=== PATIENT | female | born 1990 | race Caucasian/White ===

== ENCOUNTER 2019-04-21 14:07 | Emergency (ER) | payer MEDICAID, OTHER ==
[2019-04-21] MEDS ORDERED: Albuterol HFA INHALER* 8 gm MDI INH ONE (14:13)
[2019-04-21] MEDS ORDERED: LORazepam TAB(*) 1 MG PO ONE (14:13)
[2019-04-21 15:44] VITALS: BP 100/67
--- NOTE | 2019-04-22 06:13 | ED ---
Respiratory - HPI Summary HPI Summary: Pt is a 28yo F with a hx of asthma attacks and panic attacks presenting to the ED for SOB and hyperventilation. 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 She was able called and ambulance transported her here to the ED for further evaluation. She was given a breathing treatment in route. She states this with little effect. She believes this is more to the an anxiety attack. She states she has several asthma attacks per day and uses her albuterol inhaler with relief, however does not have her albuterol inhaler at this time. She denies any cough or congestion. Denies any fevers, sweats, chills. She recently moved to the area and currently does not have her BuSpar and Celexa with her. She states otherwise she is healthy and denies any pain. - History of Current Complaint Chief Complaint: EDShortnessOfBreath Stated Complaint: ASTHMA ATTACK PER EMS Time Seen by Provider: 04/21/19 14:09 Hx Obtained From: Patient Onset/Duration: Sudden Onset Timing: Constant Initial Severity: Severe Current Severity: Moderate Pain Intensity: 0 Character: Dyspnea at Rest Sputum Amount: None Aggravating Factor(s): Nothing Alleviating Factor(s): Nothing Associated Signs and Symptoms: Negative - Allergy/Home Medications Allergies/Adverse Reactions: Allergies Allergy/AdvReac Type Severity Reaction Status Date / Time Penicillins Allergy Difficulty Verified 04/21/19 14:15 Breathing PMH/Surg Hx/FS Hx/Imm Hx Previously Healthy: Yes - Immunization History Hx Pertussis Vaccination: No Immunizations Up to Date: Yes Infectious Disease History: Yes Infectious Disease History: Denies: Traveled Outside the [place] in Last 30 Days - Social History Occupation: Unemployed Lives: Alone Alcohol Use: Occasionally Hx Substance Use: Yes Substance Use Type: Reports: Marijuana Hx Tobacco Use: No Smoking Status (MU): Never Smoked Tobacco Review of Systems Negative: Fever, Chills, Fatigue, Skin Diaphoresis Negative: Palpitations, Chest Pain Positive: Shortness Of Breath. Negative: Cough Positive: see HPI Negative: Myalgia Neurological: Negative Positive: Anxious All Other Systems Reviewed And Are Negative: Yes Physical Exam Triage Information Reviewed: Yes Vital Signs On Initial Exam: Initial Vitals Temp Pulse Resp BP Pulse Ox 98.2 F 90 22 149/80 100 04/21/19 14:10 04/21/19 14:10 04/21/19 14:10 04/21/19 14:10 04/21/19 14:10 Vital Signs Reviewed: Yes Appearance: Positive: Well-Appearing, Well-Nourished Skin: Positive: Warm, Skin Color Reflects Adequate Perfusion Head/Face: Positive: Normal Head/Face Inspection Eyes: Positive: EOMI, POLLO, Conjunctiva Clear Neck: Positive: Supple, Nontender, No Lymphadenopathy Respiratory/Lung Sounds: Positive: Clear to Auscultation, Breath Sounds Present Cardiovascular: Positive: RRR, Pulses are Symmetrical in both Upper and Lower Extremities Musculoskeletal: Positive: Normal, Strength/ROM Intact Neurological: Positive: Speech Normal Psychiatric: Positive: Anxious AVPU Assessment: Alert Procedures - Sedation Patient Received Moderate/Deep Sedation with Procedure: No Diagnostics - Vital Signs Vital Signs Temp Pulse Resp BP Pulse Ox 04/21/19 15:36 97.8 F 66 18 100/67 100 04/21/19 15:14 81 100/67 99 04/21/19 15:00 84 100 04/21/19 14:44 85 106/52 97 04/21/19 14:40 16 04/21/19 14:34 80 21 123/63 96 04/21/19 14:23 77 77/51 99 04/21/19 14:14 149/80 04/21/19 14:11 86 98 04/21/19 14:10 98.2 F 90 22 149/80 100 - Laboratory Lab Statement: Any lab studies that have been ordered have been reviewed, and results considered in the medical decision making process. Disposition - Course Course Of Treatment: Patient's evaluated for possible anxiety versus asthma attack. On arrival into the ED, the patient appears to be in acute distress, hyperventilating. Lungs are CTA, RRR. There is no wheezing noted throughout to suggest an asthma attack. She was given a breathing treatment without relief. On arrival, she is given 1 mg Ativan, this with good effect. Pt is now appearing well, in NAD and calm. Denies SI/HI. Denies SOB. pt will be dc' d with anxiety attack dx and given 1 albuterol inhaler. [facility] up. - Differential Dx - Cardiopulmonary Differential Diagnoses - Cardiopulmonary: Other - asthma attack, SOB - Diagnoses Provider Diagnoses: Anxiety attack Discharge ED - Sign-Out/Discharge Documenting (check all that apply): Patient Departure - Discharge Plan Condition: Stable Disposition: HOME Prescriptions: Albuterol HFA INHALER* [Ventolin HFA Inhaler*] 1 puff INH Q4H PRN #1 mdi PRN Reason: Shortness Of Breath Patient Education Materials: Anxiety (ED) Referrals: [facility] [Outside] No Primary Care Phys,NOPCP [Primary Care Provider] - Additional Instructions: Use your albuterol inhaler as needed for symptoms of anxiety associated with your asthma - Billing Disposition and Condition Condition: STABLE Disposition: Home
== END 2019-04-21 15:36 | disposition home or self-care (01) ==
LOC: ED 14:07
DX: F41.0 Panic disorder [episodic paroxysmal anxiety] (principal); Z88.0 Allergy status to penicillin; Z79.899 Other long term (current) drug therapy
CPT/HCPCS: 99283; A9270-GY

== ENCOUNTER 2019-05-17 20:32 | Emergency (ER) | payer MEDICAID ==
[2019-05-17] MEDS ORDERED: NS 0.9% 1000 ML** 1,000 ML IV ONE (20:40)
[2019-05-17] MEDS ORDERED: Morphine 4 MG/ML VIAL (1 ml) 4 MG/ML VIAL IV ONE (20:40)
[2019-05-17] MEDS ORDERED: Ketorolac INJ* 30 MG/ML 1 ML VIAL IV ONE (20:45)
--- NOTE | 2019-05-17 20:57 | ED ---
Complex/Multi-Sys Presentation - HPI Summary HPI Summary: Patient is a 28 y/o F presenting to [facility] via EMS with complaints of right hip pain, RLQ pain, and SOB. Patient had slipped and fell on some ice outside of her porch eight days ago, 05/09/19. She states that the right hip pain radiates to her RLQ. Patient states that she has only been able to ambulate a few steps secondary to pain. She states that she had been evaluated at [facility] for her injuries, once on 05/11/19 and another earlier today 05/17/19. Patient reports that she had imaging done and it was noted that she had a fracture of her right hip. However, she claims that she has received no treatments otherwise and her pain has persisted. SOB onset earlier today. Fever, chills, N/ V/D, vaginal discharge, hematuria, dysuria are denied. PMHx of asthma, bipolar disorder, anxiety, depression, ADHD, PTSD reported. Keflex and Pencillin allergy noted. PSHx of two caesarean sections noted. Patient took her prescribed medications today. Home medications and allergies are reviewed. Home Medications Medication Instructions Recorded Confirmed Type Albuterol HFA INHALER* [Ventolin 1 puff INH Q4H PRN #1 mdi 04/21/19 Rx HFA Inhaler*] - History Of Current Complaint Time Seen by Provider: 05/17/19 20:32 Hx Obtained From: Patient Onset/Duration: Lasting Days, Still Present Timing: Constant, Days Severity Currently: Severe Location: Pain At: - RLQ and right hip Associated Signs And Symptoms: Positive: SOB, Nausea, Abdominal Pain, Other - positive - right hip pain; denies fever, chills, vomiting, diarrhea, constipation, dysuria, hematuria, vaginal bleeding/discharge. Negative: Vomiting, Diarrhea, Dysuria - Allergies/Home Medications Allergies/Adverse Reactions: Allergies Allergy/AdvReac Type Severity Reaction Status Date / Time Penicillins Allergy Difficulty Verified 04/21/19 14:15 Breathing Home Medications: Home Medications Albuterol inh POWDER (NF) [Proair Respiclick] 1 puff INH Q4HR PRN 05/17/19 [ History Confirmed 05/17/19] Citalopram TAB* [CeleXA TAB*] 40 mg PO DAILY 05/17/19 [History Confirmed ] PMH/Surg Hx/FS Hx/Imm Hx Respiratory History: Reports: Hx Asthma Psychiatric History: Reports: Hx Anxiety, Hx Attention Deficit Hyperactivity Disorder, Hx Depression, Hx Post Traumatic Stress Disorder, Hx Bipolar Disorder - Surgical History Surgery Procedure, Year, and Place: x2 Infectious Disease History: No Infectious Disease History: Denies: Traveled Outside the [place] in Last 30 Days - Family History Known Family History: Negative: Seizure Disorder - Social History Alcohol Use: Occasionally Hx Substance Use: Yes Substance Use Type: Reports: Marijuana Hx Tobacco Use: No Smoking Status (MU): Never Smoked Tobacco Review of Systems All Other Systems Reviewed And Are Negative: Yes Physical Exam - Summary Physical Exam Summary: Constitutional: Well-developed, Well-nourished, Alert. (-) Distressed Skin: Warm, Dry HENT: Normocephalic; Atraumatic Eyes: Conjunctiva normal Neck: Musculoskeletal ROM normal neck. (-) JVD, (-) Stridor, (-) Tracheal deviation Cardio: Rhythm regular, rate normal, Heart sounds normal; Intact distal pulses; Radial pulses are 2+ and symmetric. (-) Murmur Pulmonary/Chest wall: Effort normal. (-) Respiratory distress, (-) Wheezes, (-) Rales Abd: Soft, RLQ tenderness (-) Distension, (-) Guarding, (-) Rebound Musculoskeletal: Patient able to lift hip off of bed but has tenderness of the right anterior hip Lymph: (-) Cervical adenopathy Neuro: Alert, Oriented x3 Psych: Mood and affect Normal Triage Information Reviewed: Yes Vital Signs On Initial Exam: Initial Vitals Temp Pulse Resp BP Pulse Ox 98.2 F 83 16 113/75 100 05/17/19 20:35 05/17/19 20:35 05/17/19 20:35 05/17/19 20:35 05/17/19 20:35 Vital Signs Reviewed: Yes Procedures - Sedation Patient Received Moderate/Deep Sedation with Procedure: No Diagnostics - Vital Signs Vital Signs Temp Pulse Resp BP Pulse Ox 05/17/19 20:35 98.2 F 83 16 113/75 100 - Laboratory Result Diagrams: 05/17/19 21:02 05/17/19 21:02 Lab Statement: Any lab studies that have been ordered have been reviewed, and results considered in the medical decision making process. - CT CT A/P CT Interpretation Completed By: Radiologist Summary of CT Findings: No CT findings to correlate with the pt's symptomolgy, specifically no appedicitis. ED physician has reviewed this report. Re-Evaluation - Re-Evaluation First Eval Re-Evaluation Time: 23:07 Change: Improved Comment: Pt states that she if feeling much better. Complex Multi-Symp Course/Dx Course Of Treatment: Patient is here with right lower quadrant and hip pain. Patient's had pain for 8 days following a mechanical fall. Patient has been to [facility] twice were x-rays were performed and she was diagnosed with a possible fracture. Patient does have tenderness in her right lower quadrant at her appendix so a workup was performed. Patient had blood work performed grossly unremarkable. Patient had a negative CT scan for fracture or appendicitis. - Diagnoses Provider Diagnoses: RLQ abdominal pain, Hip pain Discharge ED - Sign-Out/Discharge Documenting (check all that apply): Patient Departure - discharge - Discharge Plan Condition: Good Disposition: HOME Patient Education Materials: Acute Abdominal Pain (ED), Hip Pain (ED) Referrals: Tori Allen NP [Primary Care Provider] - 3 Days Additional Instructions: Continue to take Motrin and Tylenol for your symptoms. PLEASE RETURN TO EMERGENCY DEPARTMENT FOR ANY NEW OR WORSENING SYMPTOMS. Please follow up with your primary care physician. Please make all follow-ups in 1-3 days unless I advise you otherwise - Billing Disposition and Condition Condition: GOOD Disposition: Home - Attestation Statements Document Initiated by Kalyn: Yes Documenting Scribe: Skyler Bui Provider For Whom Kalyn is Documenting (Include Credential): Davey Agrawal MD Scribe Attestation: Skyler Argueta, marisoled for Davey Agrawal MD on 05/17/19 at 2321. Scribe Documentation Reviewed: Yes Provider Attestation: The documentation as recorded by the Skyler salinas accurately reflects the service I personally performed and the decisions made by , Davey Agrawal MD Status of Scribe Document: Viewed
[2019-05-17 21:15] LABS: Hematocrit 31 % (35-47); Mean Corpuscular HGB Conc 32 g/dL (31-36); Mean Corpuscular Hemoglobin 24 pg (27-31); Mean Corpuscular Volume 73 fL (80-97); Mean Platelet Volume 7.9 fL (7.4-10.4); Platelet Count 232 10^3/uL (150-450); Red Blood Count 4.27 10^6 /uL (3.70-4.87); Red Cell Distribution Width 18 % (10-15); White Blood Count 6.1 10^3/uL (3.5-10.8)
--- OUTSIDE RECORDS SUMMARY | 2019-05-17 21:27 | XMS REPORT | Continuity of Care Document ---
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 [phone] Medicine Problems Description No Information Available Social History Type Date Description Comments Sex Unknown Tobacco Use Start: Unknown Patient has never smoked Smoking Status Reviewed: 05/09/19 Patient has never smoked Allergies, Adverse Reactions, Alerts Active Allergies Reaction Severity Comments Date Dairy 05/09/2019 Keflex 05/09/2019 Penicillin 05/09/2019 Medications Active Medications SIG Qnty Indications Ordering Provider Date Adderall 1 tab po daily 30tabs F90.1 Tori Allen, 05/09/2019 10mg Tablets MARINE ELECTRICIAN Celexa 1 tab po hs 30tabs F41.9 Robinofichristian Allen, 05/09/2019 40mg Tablets MARINE ELECTRICIAN Citalopram 1 by mouth every Unknown Hydrobromide day 40mg Tablets Buspirone HCL take 1 tablet by Unknown 5mg Tablets mouth three times daily Hydroxyzine HCL 2-3 tablets at Unknown 50mg bedtime as Tablets needed Proair HFA 2 puffs every 4 Unknown 108(90Base) hours as needed mcg/Act Aerosol Immunizations Description No Information Available Vital Signs Date Vital Result Comment 05/09/2019 1:11pm Height 67 inches 5'7" Weight 295.25 lb Heart Rate 68 /min BP Systolic 120 mmHg BP Diastolic 75 mmHg Body Temperature 98.3 F O2 % BldC Oximetry 97 % BMI (Body Mass Index) 46.2 kg/m2 Results Description No Information Available Procedures Description No Information Available Medical Devices Description No Information Available Encounters Description No Information Available Assessments Date Code Description Provider 05/09/2019 F90.1 Attention-deficit hyperactivity disorder, Robinofia Alejandro, MARINE ELECTRICIAN predominantly hyperactive type 05/09/2019 F41.9 Anxiety disorder, unspecified Zsofia Alejandro, MARINE ELECTRICIAN 05/09/2019 F31.30 Bipolar disorder, current episode depressed, RobinofiDOUGLAS HargroveP mild or moderate severity, unspecified 05/09/2019 G47.00 Insomnia, unspecified Robinofia Alejandro, MARINE ELECTRICIAN 05/09/2019 E66.9 Obesity, unspecified Zsofia Alejandro, MARINE ELECTRICIAN 05/09/2019 N92.6 Irregular menstruation, unspecified NAYELI Richardson Plan of Treatment Future Appointment(s):05/23/2019 3:20 pm - NAYELI Richardson at [facility] Internal Medicine - [facility]05/09/2019 - NAYELI RichardsonF90.1 Attention-deficit hyperactivity disorder, predominantly hyperactive typeNew Medication:Adderall 10 mg - 1 tab po dailyFollow up:1 - 2 bovbuW37.9 Anxiety disorder, unspecifiedNew Medication:Celexa 40 mg - 1 tab po hsF31.30 Bipolar disorder, current episode depressed, mild or moderate severity, ndzlzcfevjfF59.00 Insomnia , obhnoqbgzqbV65.9 Obesity, unspecifiedReferral:[facility] , QcauuovdcegwR89.6 Irregular menstruation, unspecifiedReferral:Patty Mondragon MD, geography instructor/Phys/Osteo Functional Status Description No Information Available Mental Status Description No Information Available Referrals Refer to Reason for Referral Status Appt Date Patty Mondragon MD Created [address], [place] [address] [phone] [facility] Created [address] [place] [address] [phone]
--- OUTSIDE RECORDS SUMMARY | 2019-05-17 21:27 | XMS REPORT ---
:1990 Author Organization [facility] Care Team Providers Name Role Phone BONNIE ROSARIO Primary Care Physician Unavailable Allergies, Adverse Reactions, Alerts Allergy Code CodeSystem Reaction Severity Criticality Status Start Substance Date Moderate Medications Medication Medication Medication Start Stop Route Dose Status Fill Code CodeSystem Date Date Instructions RxNorm Problems Problem Name Code CodeSystem Alternate Alternate Start End Status Narrative Code CodeSystem Date Date Adjustment 16239715 SNOMED-CT Active disorder 04-19 with mixed anxiety and depressed mood Relevant diagnostic tests/laboratory data Narrative No Information Procedures Procedure Code CodeSystem Target Date of Status Service Device Device Device Name Site Procedure Delivery Code Name UID Location SNOMED-CT () 2019-04-19 [facility] [address], [place], [id number] Encounters/Encounter Diagnoses Encounter Name Encounter Diagnosis Diagnosis Diagnosis Date of Service Code Code Name CodeSystem Diagnosis Delivery Location Crisis [id number] [id number] Adjustment OMED-CT 2019-04-19 [facility]vention disorder Health with mixed Clinic [address] anxiety and [facility] depressed [place], [place], [place], [id number] Vital Signs No Information Social History Element Description Description Start End Code CodeSystem AdditionalInfo Date Date SexAssignedAtBirth Female F AdministrativeGender 05-18 Hospital Discharge Instructions Reason For Referral Medical Equipment FDA Assessments
[2019-05-17 21:29] LABS: ALT 22 U/L (7-52); AST 23 U/L (13-39); Albumin 4.3 g/dL (3.2-5.2); Albumin/Globulin Ratio 1.7 (1-3); Alkaline Phosphatase 88 U/L (34-104); Anion Gap 8 mmol/L (2-11); BUN/Creatinine Ratio 23.1 (8-20); Blood Urea Nitrogen 18 mg/dL (6-24); C Reactive Protein 12.25 mg/L (<8.01); CO2 Carbon Dioxide 22 mmol/L (22-32); Calcium 8.7 mg/dL (8.6-10.3); Chloride 107 mmol/L (101-111); EGFR African American 106.4 (>60); EGFR Non-African American 87.9 (>60); Globulin 2.5 g/dL (2-4); Glucose 91 mg/dL (70-100); Potassium 3.6 mmol/L (3.5-5.0); Sodium 137 mmol/L (135-145); Total Protein 6.8 g/dL (6.4-8.9)
[2019-05-17 21:36] LABS: HCG Pregnancy < 0.60 mIU/mL
[2019-05-17] MEDS ORDERED: Iohexol 300* (CONTRAST) 10 ML SDV IV ONE (21:39)
[2019-05-17 21:46] LABS: Microcytosis 1+; Polychromasia 1+
[2019-05-17 21:47] LABS: ABS Eosinophils 0.1 10^3/ul (0-0.6); ABS Lymphocytes 0.7 10^3/ul (1.0-4.8); ABS Monocytes 0.4 10^3/ul (0-0.8); ABS Neutrophils 4.9 10^3/ul (1.5-7.7); Eosinophil % 1.9 %; Lymphocyte % 10.7 %; Nucleated Red Blood Cells % 0.1
[2019-05-17 23:21] VITALS: BP 121/72
== END 2019-05-17 23:20 | disposition home or self-care (01) ==
LOC: ED 20:32
DX: R10.31 Right lower quadrant pain (principal); M25.551 Pain in right hip; R11.0 Nausea; R06.02 Shortness of breath; J45.909 Unspecified asthma, uncomplicated; F31.9 Bipolar disorder, unspecified; F41.9 Anxiety disorder, unspecified; Z88.0 Allergy status to penicillin; Z88.1 Allergy status to other antibiotic agents; Z79.899 Other long term (current) drug therapy
CPT/HCPCS: 36415; 74177; 80053; 84702; 85025; 86140; 96361; 96374; 99282; J1885; Q9967

== ENCOUNTER 2019-06-26 19:38 | Emergency (ER) | payer MEDICAID, OTHER ==
[2019-06-26] MEDS ORDERED: Albuterol/Ipratropium NEB.SOL* Albuterol 2.5 MG/Ipratropium 0.5 MG 3 ML INH ONE (19:46)
[2019-06-26] MEDS ORDERED: LORazepam TAB(*) 1 MG PO ONE (19:46)
--- NOTE | 2019-06-26 19:49 | ED ---
Asthma - HPI Summary HPI Summary: The patient is a 29 year-old female arriving via ambulance to [facility] with a chief complaint of asthma exacerbation for a week. She reports that she ran out of her prescribed Albuterol inhaler about a week ago, so she has not been using it for her asthma. Throughout the last few days, she has become increasingly short of breath, especially today. She was given a treatment during transport by EMS to some relief of her wheezing. She endorses an intermittent cough that she attributes to her asthma and seasonal allergies. Symptoms rated 0/10 in severity. She denies any fevers. She has been prescribed Prednisone in the past. Past medical history also includes anxiety, PTSD, bipolar disorder. Patient is a nonsmoker but admits to marijuana use and occasional alcohol use. Medications reviewed. Allergies noted. - History of Current Complaint Stated Complaint: ASTHMA PER EMS Time Seen by Provider: 06/26/19 19:41 Hx Obtained From: Patient Onset/Duration: Lasting Days, Still Present Timing: Constant Initial Severity: Mild Current Severity: Mild Pain Intensity: 0 Pain Scale Used: 0-10 Numeric Location/Character: Wheezing Aggravating Symptoms: Nothing Alleviating Symptoms: Inhalers/Nebulizers - by EMS Associated Signs and Symptoms: Positive: Shortness of Breath. Negative: Other - fever Related History: Similar Episode/Dx as - asthma - Allergy/Home Medications Allergies/Adverse Reactions: Allergies Allergy/AdvReac Type Severity Reaction Status Date / Time Penicillins Allergy Difficulty Verified 04/21/19 14:15 Breathing Home Medications: Home Medications Albuterol inh POWDER (NF) [Proair Respiclick] 1 puff INH Q4HR PRN 05/17/19 [ History Confirmed 06/26/19] Citalopram TAB* [CeleXA TAB*] 40 mg PO BEDTIME 05/17/19 [History Confirmed 06/25] LORazepam TAB(*) [Ativan 0.5 MG TAB (*)] 0.5 mg PO Q4H PRN 06/26/19 [History Confirmed 06/26/19] PMH/Surg Hx/FS Hx/Imm Hx Endocrine/Hematology History: Denies: Hx Diabetes Cardiovascular History: Denies: Hx Hypertension Respiratory History: Reports: Hx Asthma History: Denies: Hx Renal Disease Psychiatric History: Reports: Hx Anxiety, Hx Attention Deficit Hyperactivity Disorder, Hx Depression, Hx Post Traumatic Stress Disorder, Hx Bipolar Disorder - Surgical History Surgical History: Yes Surgery Procedure, Year, and Place: x2 - Family History Known Family History: Negative: Seizure Disorder - Social History Alcohol Use: Occasionally Hx Substance Use: Yes Substance Use Type: Reports: Marijuana Hx Tobacco Use: No Smoking Status (MU): Never Smoked Tobacco Review of Systems Negative: Fever Positive: Shortness Of Breath, Cough - intermittent All Other Systems Reviewed And Are Negative: Yes Physical Exam - Summary Physical Exam Summary: Appearance: The patient is well-nourished in no acute distress and in no acute pain. Skin: The skin is warm and dry, and skin color reflects adequate perfusion. HEENT: The head is normocephalic and atraumatic. The pupils are equal and reactive. The conjunctivae are clear and without drainage. Nares are patent and without drainage. Mouth reveals moist mucous membranes, and the throat is without erythema and exudate. The external ears are intact. The ear canals are patent and without drainage. The tympanic membranes are intact. Neck: The neck is supple with full range of motion and non-tender. There are no carotid bruits. There is no neck vein distension. Respiratory: Chest is non-tender. Lungs exhibit mild wheezes. Breath sounds are symmetrical and equal. Cardiovascular: Heart is regular rate and rhythm. There is no murmur or rub auscultated. There is no peripheral edema and pulses are symmetrical and equal. Abdomen: The abdomen is soft and non-tender. There are normal bowel sounds heard in all four quadrants and there is no organomegaly palpated. Musculoskeletal: There is no back tenderness noted. Extremities are non-tender with full range of motion. There is good capillary refill. There is no peripheral edema or calf tenderness elicited. Neurological: Patient is alert and oriented to person, place and time. The patient has symmetrical motor strength in all four extremities. Cranial nerves are grossly intact. Deep tendon reflexes are symmetrical and equal in all four extremities. Psychiatric: The patient has an appropriate affect and does not exhibit any anxiety or depression. Triage Information Reviewed: Yes Vital Signs Reviewed: Yes Procedures - Sedation Patient Received Moderate/Deep Sedation with Procedure: No Re-Evaluation - Re-Evaluation First Eval Re-Evaluation Time: 21:15 Change: Improved Comment: Patient is feeling better after medications. We discussed results and plan for discharge home. Asthma Course/Dx - Course Course Of Treatment: Ms. Jensen improved 100% with a DuoNeb and by mouth Ativan. I'm sending her home with an inhaler and recommended follow-up as needed. - Diagnoses Provider Diagnoses: Asthma exacerbation, Anxiety Discharge ED - Sign-Out/Discharge Documenting (check all that apply): Patient Departure - Patient will be discharged home. - Discharge Plan Condition: Stable Disposition: HOME Patient Education Materials: Asthma (DC), Anxiety (ED) Referrals: Tori Allen NP [Primary Care Provider] - 3 Days Additional Instructions: Follow up with your primary care provider in 2-3 days. Return to the emergency department for any new or worsening symptoms. - Billing Disposition and Condition Condition: STABLE Disposition: Home - Attestation Statements Document Initiated by Kalyn: Yes Documenting Scribe: Nahomy Serra Provider For Whom Kalyn is Documenting (Include Credential): Avery Borges MD Scribe Attestation: Nahomy Argueta, scribed for Avery Borges MD on 06/26/19 at 7492. Scribe Documentation Reviewed: Yes Provider Attestation: The documentation as recorded by the Nahomy salinas accurately reflects the service I personally performed and the decisions made by me, Avery Borges MD Status of Scribe Document: Viewed
--- OUTSIDE RECORDS SUMMARY | 2019-06-26 21:06 | XMS REPORT | Continuity of Care Document ---
:1990 External Reference #:[id number] Author Name Maribell Moise PA Address [address] 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 Sheriff [phone] Problems Active Problems Provider Date Contusion of hip Maribell Moise PA Onset: 05/21/2019 Abdominal pain Giovani Campbell MD,FACS Onset: 12/01/2016 Social History Type Date Description Comments Sex Unknown Tobacco Use Start: Unknown Never Smoked Cigarettes Smokeless Tobacco Vape ETOH Use Denies alcohol use Tobacco Use Start: Unknown Patient denies history of smoking Recreational Drug Use Denies Drug Use Smoking Status Reviewed: 05/21/19 Patient denies history of smoking Allergies, Adverse Reactions, Alerts Active Allergies Reaction Severity Comments Date Penicillin G Nausea and Vomiting, Swelling 09/02/2016 Keflex 05/21/2019 Medications Active Medications SIG Qnty Indications Ordering Provider Date Ibuprofen 200 1-2 tabs by mouth Unknown 200mg three times a day Tablets as needed Mapap as needed Unknown 500mg Capsules History Medications No Active Medications Unknown 05/21/2019 - 05/21/2019 Immunizations Description No Information Available Vital Signs Date Vital Result Comment 05/21/2019 3:27pm BP Systolic Sitting Right Arm 127 mmHg BP Diastolic Sitting Right Arm 71 mmHg Body Temperature 95.6 F Heart Rate 74 /min Respiratory Rate 22 /min Height 66 inches 5'6" Weight 282.00 lb BMI (Body Mass Index) 45.5 kg/m2 BSA (Body Surface Area) 2.31 m2 [place] body weight in kilograms 59 kg O2 % BldC Oximetry 97 % 12/01/2016 10:02am BP Systolic 122 mmHg BP Diastolic 78 mmHg Height 66 inches 5'6" Weight 228.00 lb BMI (Body Mass Index) 36.8 kg/m2 BSA (Body Surface Area) 2.11 m2 [place] body weight in kilograms 59 kg Results Description No Information Available Procedures Description No Information Available Medical Devices Description No Information Available Encounters Type Date Location Provider Dx Diagnosis Office Visit 05/21/2019 Orthopaedic Office Maribell Moise, S70.01xA Contusion of 3:15p PA right hip, initial encounter W00.0xxA Fall on same level due to ice and snow, initial encounter Assessments Date Code Description Provider 05/21/2019 S70.01xA Contusion of right hip, initial encounter Maribell Moise PA 05/21/2019 W00.0xxA Fall on same level due to ice and snow, Maribell Moise PA initial encounter Plan of Treatment Future Appointment(s):06/19/2019 10:00 am - Maribell Moise PA at [facility]/21/2019 - Maribell Moise PAS70.01xA Contusion of right hip, initial encounterNew Therapy:Physical TherapyComments:I believe this is simply a contusion and should resolve with time; I do not think the avulsion versus enthesophyte from the superior acetabulum is the source of her pain. I have recommended a course of physical therapy. If she feels that she needs to continue to use the cane then she should do so, but it can be used as needed. Therapy will help work on strengthening both in the hip and core to hopefully prevent falls. Oral anti-inflammatories, rest, ice and/or heat are also recommended. I will also see her back in one month for recheck. Patient also stated at the end of the exam today that she plans on suing her landlord over this fall and her pain.Follow up:1 [id number] Fall on same level due to ice and snow, initial encounterAllNew Medication:No Active Medications - Functional Status Description No Information Available Mental Status Description No Information Available Referrals Description No Information Available
[2019-06-26] MEDS ORDERED: Albuterol HFA INHALER* 8 gm MDI INH ONE (21:30)
[2019-06-26 21:53] LABS: HIV 4th Generation Nonreactive (Nonreactive)
[2019-06-26] MEDS ORDERED: A lbuterol Hfa (PREPAK) 1 MDI - ED TAKE HOME DISPENSING ONLY INHH ONE (22:00)
[2019-06-26 22:32] VITALS: BP 115/68
== END 2019-06-26 22:30 | disposition home or self-care (01) ==
LOC: ED 19:38
DX: J45.901 Unspecified asthma with (acute) exacerbation (principal); R06.02 Shortness of breath; R05 Cough; F41.9 Anxiety disorder, unspecified; F90.9 Attention-deficit hyperactivity disorder, unspecified type; Z88.0 Allergy status to penicillin; Z79.899 Other long term (current) drug therapy
CPT/HCPCS: 36415; 87389; 99282; A9270-GY

== ENCOUNTER 2019-06-28 14:56 | Emergency (ER) | payer OTHER ==
--- NOTE | 2019-06-28 15:25 | ED ---
Complex/Multi-Sys Presentation - HPI Summary HPI Summary: Patient is a 29 y/o F w/ Hx of anemia and asthma who presents to [facility] for evaluation of abnormal lab values. She states that she received a workup at [facility] urgent care for Sx of SOB, chest heaviness, dizziness and light- headedness. Patient states that CXR was done and that she was told that, "my lungs were inflamed" and that her "iron was low". She was instructed to come to ED for further workup. Patient claims to have received blood transfusion with iron when she was 15 years of age. She states that she had a heavy menstrual cycle 3-4 days ago. No dark/bloody stools noted. She denies cough. Patient additionally states that she is experiencing left nielsen pain, which she typically gets when she is anemic. No recent falls noted. No recent sick contacts, no recent travel noted. Patient denies tobacco, alcohol, or other substance usage. She states that she is on disability. Patient does not report any fever, chills, erythema of eyes, sore throat, cough, abdominal pain, nausea/ vomiting, dysuria, hematuria, edema, rash. On triage, pain is rated 8/10. On manager commodities, nothing is noted to aggravate/alleviate Sx. Home medications and allergies are reviewed. - History Of Current Complaint Time Seen by Provider: 06/28/19 15:00 Hx Obtained From: Patient Onset/Duration: Still Present Timing: Constant Severity Currently: Severe - 8/10 Location: Pain At: - left nielsen Aggravating Factor(s): nothing Alleviating Factor(s): nothing Associated Signs And Symptoms: Positive: Dizziness, SOB, Chest Pain, Other - positive left nielsen pain; does not report any fever, chills, erythema of eyes, sore throat, cough, abdominal pain, nausea/vomiting, dysuria, hematuria, edema, rash. No falls, no dark/bloody stools noted. Negative: Cough, Edema, Nausea, Vomiting, Abdominal Pain, Dysuria, Fever - Allergies/Home Medications Allergies/Adverse Reactions: Allergies Allergy/AdvReac Type Severity Reaction Status Date / Time Penicillins Allergy Difficulty Verified 04/21/19 14:15 Breathing Home Medications: Home Medications Citalopram TAB* [CeleXA TAB*] 40 mg PO BEDTIME 05/17/19 [History Confirmed 06/27] Albuterol HFA INHALER* [Ventolin HFA Inhaler*] 2 puff INH Q4H PRN 06/28/19 [ History Confirmed 06/28/19] Dextroamphetamine/Amphetamine [Adderall 10 mg Tablet] 10 mg PO DAILY 06/28/19 [ History Confirmed 06/28/19] Ferrous Sulfate TAB* 325 mg PO BID #30 tab 06/28/19 [Rx] busPIRone TAB* [Buspar TAB*] 5 mg PO TID 06/28/19 [History Confirmed 06/28/19] hydrOXYzine HCL TAB* [Atarax TAB 50 MG *] 100 - 150 mg PO BEDTIME PRN 06/28/19 [ History Confirmed 06/28/19] PMH/Surg Hx/FS Hx/Imm Hx Endocrine/Hematology History: Denies: Hx Diabetes Cardiovascular History: Denies: Hx Hypertension Respiratory History: Reports: Hx Asthma History: Denies: Hx Renal Disease Psychiatric History: Reports: Hx Anxiety, Hx Attention Deficit Hyperactivity Disorder, Hx Depression, Hx Post Traumatic Stress Disorder, Hx Bipolar Disorder - Surgical History Surgery Procedure, Year, and Place: x2 - Family History Known Family History: Negative: Seizure Disorder - Social History Alcohol Use: Occasionally Hx Substance Use: Yes Substance Use Type: Reports: Marijuana Hx Tobacco Use: No Smoking Status (MU): Never Smoked Tobacco Review of Systems Negative: Fever, Chills Negative: Erythema Negative: Sore Throat Positive: Chest Pain Positive: Shortness Of Breath. Negative: Cough Gastrointestinal: Other - negative - dark/bloody stools Negative: Abdominal Pain, Vomiting, Nausea Negative: dysuria, hematuria Musculoskeletal: Other - negative - falls Positive: Myalgia - left nielsen pain . Negative: Edema Negative: Rash Neurological/Mental Status: Other - positive - dizziness All Other Systems Reviewed And Are Negative: Yes Physical Exam - Summary Physical Exam Summary: Constitutional: Well-developed, Well-nourished, Alert. (-) Distressed Skin: Warm, Dry HENT: Normocephalic; Atraumatic Eyes: Conjunctiva normal Neck: Musculoskeletal ROM normal neck. (-) JVD, (-) Stridor, (-) Tracheal deviation Cardio: Rhythm regular, rate normal, Heart sounds normal; Intact distal pulses; The pedal pulses are 2+ and symmetric. Radial pulses are 2+ and symmetric. (-) Murmur Pulmonary/Chest wall: Effort normal. (-) Respiratory distress, (-) Wheezes, (-) Rales Abd: Soft, (-) tenderness, (-) Distension, (-) Guarding, (-) Rebound Musculoskeletal: (-) Edema; hyperalgesia over left nielsen, patient screams with the slightest palpation of left nielsen. No calf tenderness noted. Lymph: (-) Cervical adenopathy Neuro: Alert, Oriented x3 Psych: Mood and affect Normal Triage Information Reviewed: Yes Vital Signs On Initial Exam: Initial Vital Signs Temp 98.8 F 06/28/19 15:15 Pulse 70 06/28/19 15:15 Resp 18 06/28/19 15:15 BP 115/95 06/28/19 15:15 Pulse Ox 100 06/28/19 15:15 Vital Signs Reviewed: Yes Procedures - Sedation Patient Received Moderate/Deep Sedation with Procedure: No Diagnostics - Laboratory Result Diagrams: 06/28/19 15:12 06/28/19 15:12 Lab Statement: Any lab studies that have been ordered have been reviewed, and results considered in the medical decision making process. - Radiology CXR Radiology Interpretation Completed By: Radiologist Summary of Radiographic Findings: CXR IMPRESSION: NO ACTIVE CARDIOPULMONARY DISEASE IS NOTED. THIS REPORT WAS REVIEWED BY ED PHYSICIAN. LEFT KNEE X-RAY Radiology Interpretation Completed By: ED Physician Summary of Radiographic Findings: No acute process, pending official report LLE X-RAY Radiology Interpretation Completed By: ED Physician Summary of Radiographic Findings: No acute process, pending official report Re-Evaluation - Re-Evaluation First Eval Re-Evaluation Time: 16:23 Comment: Patient denies chest pain currently, reports left nielsen pain. Patient has hyperalgesia over left nielsen, patient screams in pain with the slightest palpation. No erythema of nielsen noted. She also reports sleep all day and night for the past two weeks. She states that she feels nauseous but also notes that she is hungry and believes that this Sx will resolve with a turkey sandwich. She also states that she has had increased depression over the past two weeks, no SI noted. Second Eval Re-Evaluation Time: 17:07 Comment: Medical records from [place] received and reviewed. Patient had visits on 06/21, 06/22, and 06/23. On June 21, patient presented for right hip pain after fall. No LOC noted, but patient also reported that she had SOB and cough, requested COVID testing. Patient was tested and had a negative COIVID result. Patient had stated to them that she has Hx of pulmonary embolism. Patient returned on June 22 for further evaluation. Hip X-ray was negative. On June 23, patient had visit with Dr. Victor, reported worsened depression and anxiety. Requested HIV, STD, and testing. CXR was done during prior visits and normal. Complex Multi-Symp Course/Dx Course Of Treatment: Patient is a 29 y/o F w/ Hx of anemia and asthma who presents to [facility] for evaluation of abnormal lab values. She states that she received a workup at [facility] urgent care for Sx of SOB, chest heaviness, dizziness and light-headedness. Patient states that CXR was done and that she was told that, "my lungs were inflamed" and that her "iron was low". She was instructed to come to ED for further workup. Patient claims to have received blood transfusion with iron when she was 15 years of age. She states that she had a heavy menstrual cycle 3-4 days ago. No dark/bloody stools noted. She denies cough. Patient additionally states that she is experiencing left nielsen pain, which she typically gets when she is anemic. No recent falls noted. No recent sick contacts, no recent travel noted. Patient denies tobacco, alcohol, or other substance usage. She states that she is on disability. 1623 - Patient denies chest pain currently, reports left nielsen pain. Patient has hyperalgesia over left nielsen, patient screams in pain with the slightest palpation. No erythema of nielsen noted. She also reports sleep all day and night for the past two weeks. She states that she feels nauseous but also notes that she is hungry and believes that this Sx will resolve with a turkey sandwich. She also states that she has had increased depression over the past two weeks, no SI noted. No calf tenderness noted. Bloodwork was obtained. Trop was negative, D-dimer negative, Beta HCG negative. Abnormal values include Hgb 10.9, Hct 34, MCV 75, MCH 24, RDW 18, iron 26, % saturation 6. CXR IMPRESSION: NO ACTIVE CARDIOPULMONARY DISEASE IS NOTED. Medical records from [place] received and reviewed. Patient had visits on 06/21, 06/22, and 06/23. On June 21, patient presented for right hip pain after fall. No LOC noted, but patient also reported that she had SOB and cough, requested COVID testing. Patient was tested and had a negative COIVID result. Patient had stated to them that she has Hx of pulmonary embolism. Patient returned on June 22 for further evaluation. Hip X-ray was negative. On June 23, patient had visit with Dr. Victor, reported worsened depression and anxiety. Requested HIV, STD, and testing. CXR was done during prior visits and normal. LLE and left knee x-rays showed no acute process. Patient to be taken off of PUI precautions and will receive MHE due to psych complaints and history. Patient is signed-out to Dr. Agrawal at 1900 06/28/19 shift change pending MHE. - Diagnoses Provider Diagnoses: Microcytic anemia Discharge ED - Sign-Out/Discharge Documenting (check all that apply): Sign-Out Patient Signing out patient TO: Davey Agrawal - Discharge Plan Prescriptions: Ferrous Sulfate TAB* 325 mg PO BID #30 tab Referrals: Tori Allen, WILLAM [Primary Care Provider] - - Attestation Statements Document Initiated by Scribe: Yes Documenting Scribe: JAYLIN SQUIRES Provider For Whom Scribe is Documenting (Include Credential): MAIRNO SINGH MD Scribe Attestation: JAYLIN Argueta, scribed for MARINO SINGH MD on 06/28/19 at 1900. Status of Scribe Document: Ready
[2019-06-28 15:43] LABS: Hematocrit 34 % (35-47); Hemoglobin 10.9 g/dL (12.0-16.0); Mean Corpuscular HGB Conc 32 g/dL (31-36); Mean Corpuscular Hemoglobin 24 pg (27-31); Mean Corpuscular Volume 75 fL (80-97); Platelet Count 308 10^3/uL (150-450); Red Blood Count 4.51 10^6 /uL (3.70-4.87); Red Cell Distribution Width 18 % (10-15); White Blood Count 6.7 10^3/uL (3.5-10.8)
[2019-06-28 16:02] LABS: ALT 17 U/L (7-52); AST 14 U/L (13-39); Albumin 4.2 g/dL (3.2-5.2); Albumin/Globulin Ratio 1.6 (1-3); Alkaline Phosphatase 83 U/L (34-104); Anion Gap 7 mmol/L (2-11); BUN/Creatinine Ratio 14.9 (8-20); Blood Urea Nitrogen 11 mg/dL (6-24); CO2 Carbon Dioxide 24 mmol/L (22-32); Calcium 9.1 mg/dL (8.6-10.3); Chloride 107 mmol/L (101-111); EGFR African American 112.3 (>60); EGFR Non-African American 92.8 (>60); Globulin 2.6 g/dL (2-4); Glucose 87 mg/dL (70-100); Potassium 3.6 mmol/L (3.5-5.0); Sodium 138 mmol/L (135-145); Total Protein 6.8 g/dL (6.4-8.9)
[2019-06-28 16:06] LABS: HCG Pregnancy < 0.60 mIU/mL
[2019-06-28 16:14] LABS: % Iron Saturation 6 % (15-55); Iron 26 ug/dL (50-212); Total Iron Binding Capacity 435 mcg/dL (250-450); Transferrin 311 mg/dL (203-362)
[2019-06-28 18:09] LABS: Alcohol < 10 mg/dL (<10)
--- NOTE | 2019-06-28 19:05 | ED ---
Progress - Progress Note Progress Note: This pt is a sign out to Dr. Davey Agrawal MD from Dr. Irineo Arechiga MD at shift change 189906/28/2019 pending a MHE and disposition. - Results/Orders Results/Orders: EKG at 1938 shows normal sinus rhythm at 71 bpm, normal SC, normal QRS, normal QTc, normal axis, normal ST, normal T-waves, normal EKG. Interpreted by Dr. Agrawal at 194, 06/28/2019. Re-Evaluation - Re-Evaluation First Eval Re-Evaluation Time: 16:23 Comment: Patient denies chest pain currently, reports left nielsen pain. Patient has hyperalgesia over left nielsen, patient screams in pain with the slightest palpation. No erythema of nielsen noted. She also reports sleep all day and night for the past two weeks. She states that she feels nauseous but also notes that she is hungry and believes that this Sx will resolve with a turkey sandwich. She also states that she has had increased depression over the past two weeks, no SI noted. Second Eval Re-Evaluation Time: 17:07 Comment: Medical records from [place] received and reviewed. Patient had visits on 06/21, 06/22, and 06/23. On June 21, patient presented for right hip pain after fall. No LOC noted, but patient also reported that she had SOB and cough, requested COVID testing. Patient was tested and had a negative COIVID result. Patient had stated to them that she has Hx of pulmonary embolism. Patient returned on June 22 for further evaluation. Hip X-ray was negative. On June 23, patient had visit with Dr. Victro, reported worsened depression and anxiety. Requested HIV, STD, and testing. CXR was done during prior visits and normal. Course/Dx - Course Course Of Treatment: This pt is a sign out to Dr. Davey Agrawal MD from Dr. Irineo Arechiga MD at shift change 189906/28/2019 pending a MHE and disposition. EKG at 1938 shows normal sinus rhythm at 71 bpm, normal SC, normal QRS, normal QTc, normal axis, normal ST, normal T-waves, normal EKG. Interpreted by Dr. Agrawal at 194, 06/28/2019. Per Dr. Guzmán, psychiatrist, the pt will be discharged home with a Dx of depressive episode. She had no further issues during this shift and is suitable for discharge home. - Diagnoses Provider Diagnoses: Microcytic anemia, Depressive episode - Provider Notifications Discussed Care Of Patient With: Gallofredi Guzmán Time Discussed With Above Provider: 20:49 Instructed by Provider To: Other - discharge home with a Dx of depressive episode. Discharge ED - Sign-Out/Discharge Documenting (check all that apply): Patient Departure - discharge - Discharge Plan Condition: Good Disposition: HOME Prescriptions: Ferrous Sulfate TAB* 325 mg PO BID 14 Days #28 tab Patient Education Materials: Anxiety (ED) Referrals: Tori Allen NP [Primary Care Provider] - - Billing Disposition and Condition Condition: GOOD Disposition: Home - Attestation Statements Document Initiated by Kalyn: Yes Documenting Scribe: Skyler Bui Provider For Whom Kalyn is Documenting (Include Credential): Davey Agrawal MD Scribe Attestation: Skyler Argueta, scribed for Davey Agrawal MD on 06/29/19 at 0458. Scribe Documentation Reviewed: Yes Provider Attestation: The documentation as recorded by the Skyler salinas accurately reflects the service I personally performed and the decisions made by , Davey Agrawal MD Status of Scribe Document: Viewed
[2019-06-28 21:33] VITALS: BP 125/51
== END 2019-06-28 21:32 | disposition home or self-care (01) ==
LOC: ED 14:56
DX: D50.9 Iron deficiency anemia, unspecified (principal); F32.9 Major depressive disorder, single episode, unspecified; R07.9 Chest pain, unspecified; R06.02 Shortness of breath; R42 Dizziness and giddiness; Z88.0 Allergy status to penicillin; Z79.899 Other long term (current) drug therapy; Z20.828 Contact with and (suspected) exposure to other viral communicable diseases
CPT/HCPCS: 36415; 71045; 80053; 80320; 83540; 83550; 83605; 84484; 84702; 85027; 85379; 87635; 93005; 99285; G0480

== ENCOUNTER 2019-07-06 18:58 | Emergency (ER) | payer MEDICAID ==
--- NOTE | 2019-07-06 19:26 | ED ---
Shortness of Breath - HPI Summary HPI Summary: 29 year old F presenting to [facility] via EMS with a chief complaint of SOB since this morning. EMS administered nebulizer and albuterol en route. Patient states that she was fine before this morning and notes a difference in the weather. Patient denies fever but has been experiencing a cough due to her asthma as well as chest pain during her asthma attacks. Patient states that she is prescribed ventolin albuterol, but has not taken it since last night because she ran out and was not able to contact her PCP. She also states that she has been using her albuterol inhaler with more frequency before it ran out, and that it is no longer alleviating her symptoms. Patient visited the ER on 2019 with a chief complaint of SOB, chest heaviness, dizziness, and lightheadedness. Patient tested negative for COVID19 during this visit. Patient has a PMHx of asthma, mental health problems, iron deficiency. She has a PSHx in her right ear, right knee, and has had 2 C-sections. Patient denies smoking, marijuana use and states that she drinks occasionally. In addition to her albuterol, the patient takes celexa and ferrous sulfate. She has a FMHx of diabetes, hypertension, seizures, bipolar disorder, schizophrenia, and depression. - History of Current Complaint Chief Complaint: EDShortnessOfBreath Hx Obtained From: Patient Onset/Duration: Lasting Hours Dyspnea At: Rest Alleviating Factors: Nothing Associated Signs & Symptoms: Cough (Nonproductive) - Cough due to asthma., Chest Pain Unrelated to Cough - Chest pain during asthma attacks. - Allergy/Home Medications Allergies/Adverse Reactions: Allergies Allergy/AdvReac Type Severity Reaction Status Date / Time cephalexin [From Keflex] Allergy Anaphylatic Verified 07/06/19 19:05 Shock Penicillins Allergy Difficulty Verified 04/21/19 14:15 Breathing Home Medications: Home Medications Citalopram TAB* [Celexa TAB*] 40 mg PO BEDTIME 05/17/19 [History Confirmed 07/05] Albuterol HFA INHALER* [Ventolin HFA Inhaler*] 2 puff INH Q4H PRN 06/28/19 [ History Confirmed 07/06/19] Dextroamphetamine/Amphetamine [Adderall 10 mg-] 10 mg PO DAILY 06/28/19 [ History Confirmed 07/06/19] Ferrous Sulfate TAB* 325 mg PO BID 14 Days #28 tab 06/28/19 [Rx Confirmed ] busPIRone TAB* [Buspar TAB*] 5 mg PO TID 06/28/19 [History Confirmed 07/06/19] hydrOXYzine HCL TAB* [Atarax TAB 50 MG *] 100 - 150 mg PO BEDTIME PRN 06/28/19 [ History Confirmed 07/06/19] predniSONE 20 mg TAB [Deltasone 20 MG TAB*] 40 mg PO DAILY #10 tab 07/06/19 [Rx] PMH/Surg Hx/FS Hx/Imm Hx Endocrine/Hematology History: Reports: Hx Anemia Denies: Hx Diabetes Cardiovascular History: Denies: Hx Hypertension Respiratory History: Reports: Hx Asthma, Hx Pneumonia, Other Respiratory Problems/Disorders - HX PNA History: Denies: Hx Renal Disease Psychiatric History: Reports: Hx Anxiety, Hx Attention Deficit Hyperactivity Disorder, Hx Depression, Hx Post Traumatic Stress Disorder - + ADHD, Hx Bipolar Disorder, Hx Suicide Attempt - 2016, cut leg, after losing her children Denies: Hx Eating Disorder, Hx Schizophrenia - Surgical History Surgery Procedure, Year, and Place: x2 Infectious Disease History: No Infectious Disease History: Denies: Traveled Outside the [place] in Last 30 Days - Family History Known Family History: Positive: Hypertension, Diabetes, Seizure Disorder, Other - Bipolar disorder, schizophrenia, and depression. - Social History Alcohol Use: Rare Alcohol Amount: "Just a few" Hx Substance Use: Yes Substance Use Type: Reports: None Substance Use Comment - Amount & Last Used: N/A Hx Tobacco Use: No Smoking Status (MU): Never Smoked Tobacco - Additional Comments History Additional Comments: asthma, anemia, anxiety, depression, ADHD, PTSD, bipolar disorder Review of Systems - ROS Summary Review of Systems Summary: Home Medications Medication Instructions Recorded Confirmed Type Citalopram TAB* [CeleXA TAB*] 40 mg PO BEDTIME 05/17/19 07/06/19 History Albuterol HFA INHALER* [Ventolin 2 puff INH Q4H PRN 06/28/19 07/06/19 History HFA Inhaler*] Dextroamphetamine/Amphetamine 10 mg PO DAILY 06/28/19 07/06/19 History [Adderall 10 mg Tablet] Ferrous Sulfate TAB* 325 mg PO BID 14 Days #28 tab 06/28/19 07/06/19 Rx busPIRone TAB* [Buspar TAB*] 5 mg PO TID 06/28/19 07/06/19 History hydrOXYzine HCL TAB* [Atarax TAB 100 - 150 mg PO BEDTIME PRN 06/28/19 07/06/19 History 50 MG *] Negative: Fever Positive: Chest Pain - Chest pain during asthma attacks. Positive: Shortness Of Breath, Cough - Cough due to asthma. All Other Systems Reviewed And Are Negative: Yes Physical Exam - Summary Physical Exam Summary: General: Well-developed, Obese female. No acute distress. Mildly anxious appearing. HEENT: Normocephalic, Atraumatic. Eyes: Conjuctiva normal, PERRL. Oropharynx: Clear, mucous membranes moist, (-) exudates. Neck: Soft, FROM, (-) lymphadenopathy, (-) thyromegaly, (-) JVD. Cardiovascular: Normal sinus rhythm, (-) murmur. Lungs: Decreased breath sounds bilaterally, Mild tight wheezing throughout, (-) rales, (-) rhonchi. Abdomen: Soft, non-tender, non-distended, (-) organomegaly, normal bowel sounds. Back: (-) CVA tenderness Extremities: No edema. Skin: Warm, dry, (-) rash. Neuro: Alert and oriented x3, moves all extremities equally. No ataxia. No gait disturbance. No sensory deficit. Normal strength, normal sensation. Psychiatric: Mood normal, affect normal. Triage Information Reviewed: Yes Vital Signs On Initial Exam: Initial Vitals Temp Pulse Resp BP Pulse Ox 98.3 F 85 20 146/59 97 07/06/19 19:02 07/06/19 19:02 07/06/19 19:02 07/06/19 19:02 07/06/19 19:02 Vital Signs Reviewed: Yes Procedures - Sedation Patient Received Moderate/Deep Sedation with Procedure: No Diagnostics - Vital Signs Vital Signs Temp Pulse Resp BP Pulse Ox 07/06/19 19:18 75 25 99 07/06/19 19:02 98.3 F 78 22 146/59 96 - Laboratory Result Diagrams: 07/06/19 19:11 07/06/19 19:11 Lab Statement: Any lab studies that have been ordered have been reviewed, and results considered in the medical decision making process. - Radiology CXR Radiology Interpretation Completed By: ED Physician Summary of Radiographic Findings: No infiltrate. No pleural effusion. This imaging report was reviewed and interpreted by Dr. Cleary, pending official read. - EKG 1939 Cardiac Rate: NL - 77 BPM EKG Rhythm: Sinus Rhythm Summary of EKG Findings: EKG at 1939 reveals normal sinus rhythm with rate of 77 bpm. No acute changes, no ischemic changes. This EKG was reviewed and interpreted by Dr. Cleary. Re-Evaluation - Re-Evaluation First Eval Re-Evaluation Time: 21:10 Change: Improved Comment: I discussed all results and Sx has resolved. Discussed all symptoms that warrant return to the ED. Course/Dx - Course Course Of Treatment: 29-year-old female presents from home by ambulance for shortness of breath. Patient states she became short of breath this morning upon awakening. She has known asthma. States this is what happens when she has an exacerbation. She states it's caused by changes in the weather. She is a mild dry cough which she states is usual for her asthma. Has not had any fevers. mild tightness in the chest. She states she ran out of her albuterol inhaler last night. States it really hasn't been helping as much lately. He has been having to use it more. She was seen one week ago for similar symptoms. she tested negative for Covid-19 at that time. Patient received 1 DuoNeb en route with mild improvement. She has tight wheezing throughout. Mildly anxious appearing. Given another DuoNeb here with good results. Solu- Medrol given. Patient discharged to home. Sensory 5 day burst of prednisone. Albuterol inhaler dispensed at discharge. Follow-up with PCP. Follow sooner for any worsening symptoms. Patient received Douneb treatment in the ED. Potassium administered for slight hypokalemia. Patient also given Solu-Medrol prior to discharge and Albuterol inhaler to go. Prescription for Prednisone. - Diagnoses Provider Diagnoses: Asthma exacerbation Discharge ED - Sign-Out/Discharge Documenting (check all that apply): Patient Departure - Discharged. - Discharge Plan Condition: Stable Disposition: HOME Prescriptions: predniSONE 20 mg TAB [Deltasone 20 MG TAB*] 40 mg PO DAILY #10 tab Patient Education Materials: Asthma (ED) Referrals: Tori Allen NP [Primary Care Provider] - 3 Days Additional Instructions: Please follow up with your primary care physician within three days. Please return to the Emergency Department for any new or worsening symptoms. - Billing Disposition and Condition Condition: STABLE Disposition: Home - Attestation Statements Document Initiated by Kalyn: Yes Documenting Scribe: Nahomy Tijerina Provider For Whom Kalyn is Documenting (Include Credential): Alix Cleary MD Scribe Attestation: Keila Argueta Natalie George, scribed for Alix Cleary MD on 07/06/19 at 2309. Scribe Documentation Reviewed: Yes Provider Attestation: The documentation as recorded by the Keila salinas Natalie George accurately reflects the service I personally performed and the decisions made by Alix villalobos MD Status of Scribe Document: Viewed
[2019-07-06] MEDS ORDERED: Albuterol/Ipratropium NEB.SOL* Albuterol 2.5 MG/Ipratropium 0.5 MG 3 ML INH ONE ×2 (19:29)
[2019-07-06 19:38] LABS: ABS Eosinophils 0.2 10^3/ul (0-0.6); ABS Monocytes 0.6 10^3/ul (0-0.8); ABS Neutrophils 4.2 10^3/ul (1.5-7.7); Eosinophil % 2.8 %; Hematocrit 37 % (35-47); Lymphocyte % 28.8 %; Mean Corpuscular HGB Conc 33 g/dL (31-36); Mean Corpuscular Hemoglobin 25 pg (27-31); Mean Corpuscular Volume 76 fL (80-97); Mean Platelet Volume 8.2 fL (7.4-10.4); Platelet Count 257 10^3/uL (150-450); Red Blood Count 4.79 10^6 /uL (3.70-4.87); Red Cell Distribution Width 20 % (10-15)
[2019-07-06 19:51] LABS: ALT 15 U/L (7-52); AST 15 U/L (13-39); Albumin 4.4 g/dL (3.2-5.2); Albumin/Globulin Ratio 1.7 (1-3); Alkaline Phosphatase 80 U/L (34-104); Anion Gap 8 mmol/L (2-11); BUN/Creatinine Ratio 17.7 (8-20); Blood Urea Nitrogen 14 mg/dL (6-24); CO2 Carbon Dioxide 24 mmol/L (22-32); Calcium 9.8 mg/dL (8.6-10.3); Chloride 107 mmol/L (101-111); EGFR African American 104.1 (>60); Globulin 2.6 g/dL (2-4); Glucose 101 mg/dL (70-100); Potassium 3.3 mmol/L (3.5-5.0); Sodium 139 mmol/L (135-145)
[2019-07-06 19:57] LABS: HCG Pregnancy < 0.60 mIU/mL
[2019-07-06] MEDS ORDERED: Potassium Chlor TAB* 20 MEQ TAB.ER PO ONE ×2 (20:06)
[2019-07-06] MEDS ORDERED: methylPREDNISolone 125 MG* 2 ML VIAL IM ONE ×2 (21:06)
[2019-07-06] MEDS ORDERED: Albuterol HFA INHALER* 8 gm MDI INH ONE (21:08)
[2019-07-06 21:58] VITALS: BP 124/59
[2019-07-06] MEDS ORDERED: A lbuterol Hfa (PREPAK) 1 MDI - ED TAKE HOME DISPENSING ONLY INHH ONE ×2 (22:00)
== END 2019-07-06 21:58 | disposition home or self-care (01) ==
LOC: ED 18:58
DX: J45.901 Unspecified asthma with (acute) exacerbation (principal); D64.9 Anemia, unspecified; F41.9 Anxiety disorder, unspecified; F90.9 Attention-deficit hyperactivity disorder, unspecified type; F43.10 Post-traumatic stress disorder, unspecified; F31.9 Bipolar disorder, unspecified; Z79.899 Other long term (current) drug therapy; Z88.0 Allergy status to penicillin; Z88.1 Allergy status to other antibiotic agents
CPT/HCPCS: 36415; 71045; 80053; 83605; 84484; 84702; 85025; 85379; 93005; 96372; 99284; A9270-GY; J2930